=== PATIENT | female | born 1990 | race Caucasian/White ===

== ENCOUNTER 2016-10-01 20:56 | Emergency (ER) | payer OTHER | END 2016-10-01 22:17 | disposition home or self-care (01) | LOC: FER 20:56 | DX: S56.591A Other injury of other extensor muscle, fascia and tendon at forearm level, right arm, initial encounter (principal); F17.210 Nicotine dependence, cigarettes, uncomplicated; W19.XXXA Unspecified fall, initial encounter | CPT/HCPCS: 73090; 99283 ==

== ENCOUNTER 2016-10-21 17:52 | Emergency (ER) | payer OTHER ==
[2016-10-21 18:25] LABS: BILIRUBIN NEGATIVE (NEGATIVE); BLOOD NEGATIVE Ery/uL (NEGATIVE); CLARITY CLEAR (CLEAR); COLOR COLORLESS (YELLOW); GLUCOSE (U) NORMAL (NORMAL); KETONE (U) NEGATIVE (NEGATIVE); LEUKOCYTES NEGATIVE Leu/uL (NEGATIVE); NITRITE NEGATIVE (NEGATIVE); PROTEIN NEGATIVE (NEGATIVE); SPECIFIC GRAVITY <=1.005 (1.001-1.030); UROBILINOGEN 0.2 mg/dL (0.2-1.0)
[2016-10-21 18:40] LABS: HCT 44.9 % (37.0-47.0); HGB 15.4 g/dl (12.5-16.0); RBC 4.97 M/uL (4.20-5.40)
[2016-10-21 18:41] LABS: MCHC 34.3 g/dL (32.0-36.0); MCV 90.3 fL (78.0-100.0); PLT 209 K/uL (150-400)
[2016-10-21 18:44] LABS: WBC 9.9 K/uL (4.0-10.5)
[2016-10-21 18:53] LABS: ALBUMIN 4.5 g/dL (3.5-5.0); BILIRUBIN - TOTAL 0.6 mg/dL (0.1-1.0); CREATININE 0.6 mg/dL (0.5-1.0); GLOBULIN (CALCULATION) 2.6 g/dL (2.2-4.2); POTASSIUM 3.7 mmol/L (3.5-5.1); TOTAL PROTEIN 7.1 g/dL (6.4-8.3)
== END 2016-10-21 19:25 | disposition home or self-care (01) ==
LOC: FER 17:52
PROVIDERS: Nurse Practitioner
DX: R11.2 Nausea with vomiting, unspecified (principal); N91.2 Amenorrhea, unspecified; F90.9 Attention-deficit hyperactivity disorder, unspecified type; F17.210 Nicotine dependence, cigarettes, uncomplicated; Z79.899 Other long term (current) drug therapy
CPT/HCPCS: 36415; 80053; 81003; 84702; 85025; 99284

== ENCOUNTER 2016-12-06 15:29 | Emergency (ER) | payer OTHER ==
[2016-12-06 16:54] LABS: BASOPHIL 0.4 % (0-2); EOSINOPHIL 1.2 % (0-5); HCT 46.9 % (37.0-47.0); HGB 16.3 g/dl (12.5-16.0); LYMPHOCYTE 34.4 % (15-48); MCH 31.2 pg (25.0-31.0); MCHC 34.8 g/dL (32.0-36.0); MCV 89.7 fL (78.0-100.0); MONOCYTE 3.9 % (0-12); MPV 10.3 fL (6.0-9.5); NEUTROPHIL 60.1 % (41-80); PLT 259 K/uL (150-400); RBC 5.23 M/uL (4.20-5.40); RDW 13.6 % (11.5-14.0); WBC 10.8 K/uL (4.0-10.5)
[2016-12-06 16:59] LABS: INR 0.96 (0.9-1.2); PROTHROMBIN TIME 12.4 SECONDS (11.7-14.0); PTT 27.3 SECONDS (23.2-31.4)
[2016-12-06 17:00] LABS: D-DIMER < 0.27 ug/mLFEU (0.00-0.41)
[2016-12-06 17:05] LABS: CREATININE 0.6 mg/dL (0.5-1.0)
[2016-12-06 17:06] LABS: ALBUMIN 4.8 g/dL (3.5-5.0); BILIRUBIN - TOTAL 0.6 mg/dL (0.1-1.0); GLOBULIN (CALCULATION) 2.8 g/dL (2.2-4.2); POTASSIUM 3.5 mmol/L (3.5-5.1); TOTAL PROTEIN 7.6 g/dL (6.4-8.3)
[2016-12-06 17:30] LABS: BILIRUBIN NEGATIVE (NEGATIVE); BLOOD NEGATIVE Ery/uL (NEGATIVE); CLARITY CLEAR (CLEAR); COLOR YELLOW (YELLOW); GLUCOSE (U) NORMAL (NORMAL); KETONE (U) NEGATIVE (NEGATIVE); LEUKOCYTES NEGATIVE Leu/uL (NEGATIVE); NITRITE POSITIVE (NEGATIVE); PROTEIN NEGATIVE (NEGATIVE); UROBILINOGEN 0.2 mg/dL (0.2-1.0)
[2016-12-06 17:46] LABS: BENZODIAZEPINES NEGATIVE (NEGATIVE); COCAINE NEGATIVE (NEGATIVE)
[2016-12-06 17:47] LABS: AMPHETAMINES POSITIVE (NEGATIVE); BARBITURATES NEGATIVE (NEGATIVE); MARIJUANA (THC) POSITIVE (NEGATIVE); METHADONE NEGATIVE (NEGATIVE); TRICYCLIC ANTIDEPRESSANT NEGATIVE (NEGATIVE)
== END 2016-12-06 18:23 | disposition home or self-care (01) ==
LOC: FER 15:29
PROVIDERS: Internal Medicine
DX: N39.0 Urinary tract infection, site not specified (principal); F15.10 Other stimulant abuse, uncomplicated; F12.10 Cannabis abuse, uncomplicated; R07.1 Chest pain on breathing; F90.9 Attention-deficit hyperactivity disorder, unspecified type; R06.02 Shortness of breath; F17.210 Nicotine dependence, cigarettes, uncomplicated
CPT/HCPCS: 36415; 71010; 80053; 80305; 81003; 84443; 84484; 85025; 85379; 85610; 85730; 93005; J2405